=== PATIENT | female | born 1965 | race Caucasian/White ===

== ENCOUNTER → 2016-07-30 | Outpatient (CLI) | payer BC ==
[~2016-07-30] MED LIST: ASPIRIN E.C. 8181 MG PO; CALCIUM + D 5001 TAB PO; CELEXA20 MG PO; DEXILANT30 MG PO; FLONASE0.05 MG/AC NS; IBU600 MG PO; LASIX20 MG PO; LEUCINE PO; LISINOPRIL10 MG PO; LISINOPRIL20 MG PO; LOPRESSOR 225 MG/TAB PO; MELATONIN3 MG PO; METAMUCIL0.52 GM PO; METOPROLOL TART25 MG PO; MULTIPLE VITAMI1 CAP PO; NORCO 325 MG-101 TAB PO; OSTEO-BI-FLEX 21 TAB PO; POTASSIUM CHLO10 ME2 PO; PRAVASTATIN40 MG PO; PRILOSEC 20MG20 MG PO; SUPER EPA 1201200 MG PO; VITAMIN B COMPL1 TA1 PO; ZYRTEC10 M1 PO
== END ==
LOC: MC.RAD 07:00
DX: Z12.31 Encounter for screening mammogram for malignant neoplasm of breast (principal)

== ENCOUNTER 2016-08-29 13:00 | Outpatient (RCR) | payer BC | END 2016-09-27 09:57 | LOC: WSPT 13:00 | DX: M25.511 Pain in right shoulder (principal) ==

== ENCOUNTER 2017-07-15 06:58 | Day surgery (SDC) | payer BC ==
[~2017-07-15] VITALS: Ht 167.6 cm; Wt 82.4 kg
[~2017-07-15 06:58] MED LIST changes: +CELEXA40 MG PO; +NEXIUM 40MG40 MG PO; +PRAVACHOL80 MG PO; +VESICARE 5MG5 MG PO; +VOLTAREN-XR100 MG PO
[2017-07-15] MEDS ORDERED: ZYRTEC10MGSGL PO (07:30)
[2017-07-15] MEDS ORDERED: METAMUCIL MUL0.52 GM PO (07:31)
[2017-07-15] MEDS ORDERED: MASON NATURAL1200 MG PO (07:32)
[2017-07-15] MEDS ORDERED: ASPIRIN E.C. 8181 MG PO (07:33)
[2017-07-15] MEDS ORDERED: MELATONIN5 M1 PO (07:33)
[2017-07-15] MEDS ORDERED: CALCIUM 600/VIT1 CA1 PO (07:35)
[2017-07-15] MEDS ORDERED: OSTEO-BI-FLEX 21 TAB PO (07:37)
[2017-07-15 08:07] VITALS: BP 124/73; PULSE 63; TEMP 98
[2017-07-15 12:40] VITALS: BP 136/72; PULSE 64; TEMP 97.2
[2017-07-15 13:00] VITALS: BP 132/71; PULSE 63
[2017-07-15 13:15] VITALS: BP 126/77; PULSE 59
[2017-07-15] MEDS ORDERED: NORCO 325 MG-7.1 TAB PO (13:20)
[2017-07-15] MEDS ORDERED: OXY IR5 MG PO (13:21)
[2017-07-15 13:30] VITALS: BP 136/76; PULSE 58
[2017-07-15 14:00] VITALS: BP 128/66; PULSE 56
== END 2017-07-15 15:00 | disposition home or self-care (01) ==
LOC: SDCO 06:58
DX: M75.121 Complete rotator cuff tear or rupture of right shoulder, not specified as traumatic (principal); M66.821 Spontaneous rupture of other tendons, right upper arm
CPT/HCPCS: C1713; J0171; J0690; J1100; J2250; J2405; J2704; J3010; J7120

== ENCOUNTER 2017-07-30 15:57 | Emergency (ER) | payer BC ==
[~2017-07-30] VITALS: Ht 170.2 cm; Wt 86.4 kg
[~2017-07-30 15:57] MED LIST changes: +CALCIUM 600/VIT1 CA1 PO; +MASON NATURAL1200 MG PO; +MELATONIN5 M1 PO; +METAMUCIL MUL0.52 GM PO; +NORCO 325 MG-7.1 TAB PO; +OXY IR5 MG PO; +ZYRTEC10MGSGL PO
[2017-07-30 15:58] VITALS: TEMP 98.3
[2017-07-30 16:35] LABS: BASO % 0.6 % (0.0-2.0); EOS # 0.3 (0.0-0.7); EOS % 5.9 % (0-4.0); GRAN # 3.4 (1.4-6.5); GRAN % 62.5 % (42.2-75.2); HEMATOCRIT 38.8 % (37.0-47.0); LYMPH # 1.4 (1.2-3.4); LYMPH % 25.1 % (20.0-51.0); MEAN CELL VOLUME 94 fl (80.0-100.0); MEAN CORPUSCULAR HEMOGLOBIN 32 pg (27.0-31.0); MEAN CORPUSCULAR HGB CONC 34 g/dl (33.0-37.0); MEAN PLATELET VOLUME 10.8 fl (7.4-10.4); MONO # 0.3 (0.1-0.6); MONO % 5.7 % (1.7-9.3); PLATELET COUNT 209 K/mm3 (130-400); RED BLOOD COUNT 4.11 M/mm3 (4.10-5.30); REDCELL DISTRIBUTION WIDTH-CV 12.3 % (11.5-14.5)
[2017-07-30 16:52] LABS: ALANINE AMINOTRANSFERASE 55 U/L (9-52); ALKALINE PHOSPHATASE 94 U/L (50-136); ANION GAP 11 mmol/L (7-16); AST,SGOT 34 U/L (15-37); BILIRUBIN,TOTAL 0.5 mg/dL (0.0-1.0); BLOOD UREA NITROGEN 24 mg/dL (7-17); CALCIUM 9.4 mg/dL (8.4-10.2); CARBON DIOXIDE 25 mmol/L (22-30); CHLORIDE 102 mmol/L (98-107); CREATININE, serum 0.93 mg/dL (0.52-1.25); GLUCOSE 79 mg/dL (74-106); LIPASE 115 U/L (23-300); POTASSIUM 3.8 mmol/L (3.4-5.0); SODIUM 138 mmol/L (137-145); TOTAL PROTEIN 7.1 gm/dL (6.4-8.2)
[2017-07-30 17:02] LABS: TROPONIN-I < 0.012 ng/mL (0.000-0.034)
[2017-07-30 19:45] VITALS: BP 136/88; PULSE 58
== END 2017-07-30 19:35 | disposition home or self-care (01) ==
LOC: COL.ER 15:57
PROVIDERS: Emergency Medicine
DX: R07.89 Other chest pain (principal); R06.02 Shortness of breath; I10 Essential (primary) hypertension; E78.5 Hyperlipidemia, unspecified; Z79.82 Long term (current) use of aspirin; Z98.890 Other specified postprocedural states
CPT/HCPCS: Q9967

== ENCOUNTER 2017-08-08 14:04 | Day surgery (SDC) | payer BC ==
[~2017-08-08] VITALS: Ht 170.2 cm; Wt 86.4 kg
[2017-08-08 14:33] VITALS: BP 122/70; PULSE 56; TEMP 98.6
[2017-08-08] MEDS ORDERED: MULTI VITAMINS1 TAB PO (14:41)
[2017-08-08] MEDS ORDERED: METAMUCIL MUL0.52 GM PO (14:44)
[2017-08-08] MEDS ORDERED: ADVIL200 MG PO (14:47)
[2017-08-08] MEDS ORDERED: OSTEO-BI-FLEX 21 TAB PO (14:47)
[2017-08-08] MEDS ORDERED: TYLENOL 8 HR PO (14:48)
[2017-08-08 15:45] VITALS: BP 113/65; PULSE 56; TEMP 97.5
[2017-08-08 16:00] VITALS: BP 99/73; PULSE 63
[2017-08-08 16:15] VITALS: BP 108/56; PULSE 55
[2017-08-08 16:30] VITALS: BP 107/65; PULSE 53
== END 2017-08-08 16:48 | disposition home or self-care (01) ==
LOC: SDCO 14:04
DX: K22.2 Esophageal obstruction (principal); K44.9 Diaphragmatic hernia without obstruction or gangrene; K20.0 Eosinophilic esophagitis; Z86.010 Personal history of colon polyps; R01.1 Cardiac murmur, unspecified; Z79.82 Long term (current) use of aspirin; Z79.899 Other long term (current) drug therapy; Z83.71 Family history of colonic polyps
CPT/HCPCS: OP; C1726; J2250; J3010; J7030

== ENCOUNTER → 2017-09-09 | Outpatient (CLI) | payer BC ==
[~2017-09-09] MED LIST changes: +ADVIL200 MG PO; +MULTI VITAMINS1 TAB PO; +TYLENOL 8 HR PO
== END ==
LOC: MC.RAD 08-02 11:00
DX: Z12.31 Encounter for screening mammogram for malignant neoplasm of breast (principal)

== ENCOUNTER → 2017-09-11 | Outpatient (CLI) | payer BC | LOC: MC.RAD 12:46 | DX: N64.89 Other specified disorders of breast (principal) ==

== ENCOUNTER → 2017-09-18 | Outpatient (CLI) | payer BC | LOC: MC.RAD 08:10 | DX: N60.91 Unspecified benign mammary dysplasia of right breast (principal); R92.0 Mammographic microcalcification found on diagnostic imaging of breast ==

== ENCOUNTER 2017-10-11 06:42 | Day surgery (SDC) | payer BC ==
[~2017-10-11] VITALS: Ht 167.6 cm; Wt 87.8 kg
[2017-10-11 08:19] VITALS: BP 109/54; PULSE 50; TEMP 97.4
[2017-10-11 11:35] VITALS: BP 100/57; PULSE 51
[2017-10-11 11:50] VITALS: BP 100/62; PULSE 51
[2017-10-11 12:05] VITALS: BP 106/58; PULSE 50
[2017-10-11 12:20] VITALS: BP 110/59; PULSE 50
[2017-10-11] MEDS ORDERED: NORCO 325 MG-51 TAB PO (12:27)
== END 2017-10-11 13:10 | disposition home or self-care (01) ==
LOC: SDCO 06:42
DX: D24.1 Benign neoplasm of right breast (principal); N62 Hypertrophy of breast; Z79.82 Long term (current) use of aspirin; Z79.899 Other long term (current) drug therapy; I34.1 Nonrheumatic mitral (valve) prolapse; I10 Essential (primary) hypertension; G47.33 Obstructive sleep apnea (adult) (pediatric); K21.9 Gastro-esophageal reflux disease without esophagitis; R39.15 Urgency of urination
CPT/HCPCS: J1100; J2250; J2405; J2704; J2795; J3010; J7120

== ENCOUNTER 2018-03-05 07:06 | Inpatient (IN) | payer BC ==
[~2018-03-05] VITALS: Ht 167.6 cm; Wt 89.1 kg
[2018-03-05] VITALS (11 sets, daily range): BP systolic 92–120; BP diastolic 47–71; PULSE 77–93; TEMP 97.4–100.1
[~2018-03-05 07:06] MED LIST changes: +NORCO 325 MG-51 TAB PO
[2018-03-05 07:44] LABS: BASO % 0.3 % (0.0-2.0); EOS % 0.4 % (0-4.0); GRAN # 6.6 (1.4-6.5); HEMOGLOBIN 15.2 g/dl (12.5-16.0); LYMPH # 0.6 (1.2-3.4); LYMPH % 8.1 % (20.0-51.0); MEAN CELL VOLUME 94 fl (80.0-100.0); MEAN CORPUSCULAR HEMOGLOBIN 32 pg (27.0-31.0); MEAN CORPUSCULAR HGB CONC 34 g/dl (33.0-37.0); MEAN PLATELET VOLUME 11.7 fl (7.4-10.4); MONO # 0.3 (0.1-0.6); MONO % 3.8 % (1.7-9.3); PLATELET COUNT 194 K/mm3 (130-400); RED BLOOD COUNT 4.79 M/mm3 (4.10-5.30); REDCELL DISTRIBUTION WIDTH-CV 12.4 % (11.5-14.5)
[2018-03-05 07:57] LABS: ALBUMIN 4.7 gm/dL (3.5-5.0); BILIRUBIN,TOTAL 0.6 mg/dL (0.0-1.0); C-REACTIVE PROTEIN 6.1 mg/dL (0.0-0.9); CREATININE, serum 0.98 mg/dL (0.52-1.25); TOTAL PROTEIN 7.8 gm/dL (6.4-8.2)
[2018-03-05 08:23] LABS: COLLECTION METHOD CLEAN CATCH
[2018-03-05 08:28] LABS: MUCOUS Present /lpf; PH 5 (5-8); SQUAMOUS EPITHELIAL 0-2 /hpf; URINE APPEARANCE Clear; URINE BACTERIA None Seen /hpf; URINE BILIRUBIN Negative (NEGATIVE); URINE BLOOD Negative (NEGATIVE); URINE COLOR Yellow; URINE GLUCOSE Negative (NEGATIVE); URINE KETONE Negative (NEGATIVE); URINE LEUKOCYTE ESTERASE Negative (NEGATIVE); URINE NITRATE Negative (NEGATIVE); URINE PROTEIN(semi-quant) Negative (NEGATIVE); URINE RBC 0-2 /hpf; URINE UROBILINOGEN Negative (NEGATIVE)
--- NOTE | 2018-03-05 11:12 | NUR ---
Patient admitted to room 342 from ER. Report was obtained from Isabella. Patient inital, 5 page & med rec completed. Patient IV to Rac, LR to gravity started. Patient freshed up for OR. [facility] hell[facility] to take her to the OR.
--- NOTE | 2018-03-05 12:44 | NUR ---
Patient to OR with [facility] transporter now, there was a delay in OR
--- NOTE | 2018-03-05 13:29 | NUR ---
First visit from the public accountant. prayed with patient. No other needs right now.
--- NOTE | 2018-03-05 19:37 | NUR ---
Patient post op this afternoon & has done fairly well. VSS on room air. Strang for pain management. Lap site x3 open to air, edges well approximated. She has been up to the bathroom & reports the movement did help relieve gas pain. IVf & antibioitcs as ordered. She is tolerating clear liquids. Scds Ble. Bedside report to Yaya QUICK
[2018-03-06] VITALS: BP 99/53; PULSE 80; TEMP 98
[2018-03-06 04:00] VITALS: BP 104/41; PULSE 70; TEMP 98.3
--- NOTE | 2018-03-06 06:12 | NUR ---
Pt slept during the night, some C/O pain which was relieved with medication, VS have remained stable. Pt was up several times to use the restroon without major issues. she does need assistqnce to stand but ambulates well on her own.
[2018-03-06 09:07] VITALS: BP 99/49; PULSE 70; TEMP 97.4
--- NOTE | 2018-03-06 09:35 | NUR ---
Initial visit; Patient thanked Machine Zipper Trimmer for looking in on her and offering prayer of thanksgiving that she is recovering well and is thankful for God's blessings.
--- NOTE | 2018-03-06 10:00 | NUR ---
Patient alert and oriented, answers questions appropriately. See assessment. RLE with slight external rotation, pulses palpable, no c/o numbness or tingling. C/o continuous pain to RLE. NWB to RLE. No other c/o at this time.
[2018-03-06 13:09] VITALS: BP 125/61; PULSE 75; TEMP 98.6
--- NOTE | 2018-03-06 14:44 | NUR ---
YANCY met with the patient to discuss discharge plan. The patient lives alone in [place] and is a professor at [employer]. She reports independence with ADLs and does not use any DME. The patient's PCP is Dr. Endy Brooks and she receives her medications at the [facility]. She reports no difficulties obtaining her meds. The patient does not have advanced directives, but she was interested in obtaining the form for DPOA-HC. YANCY provided. The patient plans to return home upon discharge. No additional needs at this time.
[2018-03-06 16:25] VITALS: BP 101/65; PULSE 80; TEMP 98.4
[2018-03-06 19:26] VITALS: BP 110/68; PULSE 86; TEMP 98.5
--- NOTE | 2018-03-06 20:00 | NUR ---
Patient in bed resting. Alert and oriented x3. Shift assessment complete. Lap sites x3, open to air, edges well approximated. States mild pain to abdomen but refuses pain medication. Up to restroom, stand by assist. SCDs to bilateral lower extremities. Denies further needs at this time.
[2018-03-07 03:22] VITALS: BP 110/65; PULSE 76; TEMP 97.9
--- NOTE | 2018-03-07 05:03 | NUR ---
Patient has rested well through the night. Minimal needs. Has been up to restroom, stand by assist. Had an episode of diarrhea this AM, bedpad changed and gown changed. Patient denies pain this AM. SCDs to BLE. Denies further needs at this time. Will report off to day shift.
[2018-03-07 07:20] VITALS: BP 105/52; PULSE 77; TEMP 98.4
--- NOTE | 2018-03-07 10:14 | NUR ---
Follow-up visit; Patient thanked Senior Android Developer for stopping in prior to her release and per request praying for cessation of pain and rapid healing.
--- NOTE | 2018-03-07 10:58 | NUR ---
Discharge instructions reveiwed with patient, verbalized understanding. Discharged ambulatory to auto/home at 1055.
== END 2018-03-07 10:55 | disposition home or self-care (01) | DRG 340 ==
LOC: COL.ER 07:06 → SURG 09:38
PROVIDERS: Emergency Medicine; ADMIT Surgery
PROC: 0DTJ4ZZ Resection of Appendix, Percutaneous Endoscopic Approach (ICD-10-PCS; principal; 2018-03-05 12:00)
DX: K35.33 Acute appendicitis with perforation, localized peritonitis, and gangrene, with abscess (principal); I10 Essential (primary) hypertension; Z95.2 Presence of prosthetic heart valve; E78.5 Hyperlipidemia, unspecified; K21.9 Gastro-esophageal reflux disease without esophagitis
CPT/HCPCS: J1885; J2405; J2543; J2704; J3010; J7030; J7120

== ENCOUNTER → 2018-07-11 | Outpatient (CLI) | payer BC | LOC: MC.RAD 07:33 | DX: Z12.31 Encounter for screening mammogram for malignant neoplasm of breast (principal); N64.89 Other specified disorders of breast ==

== ENCOUNTER → 2018-07-16 | Outpatient (CLI) | payer BC | LOC: MC.RAD 07:39 | DX: R92.2 Inconclusive mammogram (principal) | CPT/HCPCS: G0279 ==

== ENCOUNTER → 2019-01-15 | Outpatient (CLI) | payer BC | LOC: MC.RAD 06:58 | DX: R92.2 Inconclusive mammogram (principal) | CPT/HCPCS: G0279 ==

== ENCOUNTER 2019-04-17 18:02 | Emergency (ER) | payer OTHER ==
[~2019-04-17] VITALS: Ht 167.6 cm; Wt 86.4 kg
[2019-04-17 18:06] VITALS: TEMP 98
[2019-04-17 20:00] VITALS: BP 125/79; PULSE 59
== END 2019-04-17 20:00 | disposition home or self-care (01) ==
LOC: COL.ER 18:02
DX: S30.1XXA Contusion of abdominal wall, initial encounter (principal); R40.2412 Glasgow coma scale score 13-15, at arrival to emergency department; Z79.82 Long term (current) use of aspirin; V43.52XA Car driver injured in collision with other type car in traffic accident, initial encounter
CPT/HCPCS: Q9967

== ENCOUNTER → 2019-07-22 | Outpatient (CLI) | payer BC | LOC: MC.RAD 09:51 | DX: R92.8 Other abnormal and inconclusive findings on diagnostic imaging of breast (principal) | CPT/HCPCS: 30634 ==

== ENCOUNTER → 2020-01-25 | Outpatient (CLI) | payer BC | LOC: MC.RAD 07:25 | DX: R92.2 Inconclusive mammogram (principal); Z98.82 Breast implant status ==

== ENCOUNTER → 2020-07-20 | Outpatient (CLI) | payer BC ==
[~2020-07-20] MED LIST changes: +PEPCID40 MG PO
== END ==
LOC: MC.RAD 08:43
DX: Z12.31 Encounter for screening mammogram for malignant neoplasm of breast (principal); Z98.890 Other specified postprocedural states

== ENCOUNTER 2020-07-29 08:53 | Day surgery (SDC) | payer BC ==
[~2020-07-29] VITALS: Ht 167.6 cm; Wt 85.0 kg
[~2020-07-29 08:53] MED LIST changes: -PEPCID40 MG PO
[2020-07-29 09:34] VITALS: BP 122/74; PULSE 50; TEMP 98
[2020-07-29] MEDS ORDERED: PEPCID40 MG PO (10:12)
[2020-07-29 11:10] VITALS: BP 104/62; PULSE 55
--- NOTE | 2020-07-29 11:10 | NUR ---
Patient returns to bay 3 per cart and transfers from cart to recliner with two person assist. Alert and oriented x3. IV fluids infusing. Temp 96.6 and room air sats 97%. Given water to drink and pudding to eat. Denies nausea or abdominal pain.
[2020-07-29 11:25] VITALS: BP 121/63; PULSE 54
--- NOTE | 2020-07-29 11:25 | NUR ---
Resting and talking with family. IV fluids continue to infuse.
--- NOTE | 2020-07-29 11:30 | NUR ---
Dr. Peters here and talks with the patient. All questions answered.
[2020-07-29 11:35] VITALS: BP 127/77; PULSE 49
--- NOTE | 2020-07-29 11:35 | NUR ---
IV discontinued and site is free for redness. Patient dresses self.
--- NOTE | 2020-07-29 11:50 | NUR ---
Dismissal instructions given and signed. Voices understanding of these.
--- NOTE | 2020-07-29 11:53 | NUR ---
Discharged to home driven by family with dismissal instructions in hand. Taken to the front door per wheelchair and assisted into vehicle with instructions in hand.
== END 2020-07-29 10:35 | disposition home or self-care (01) ==
LOC: SDCO 08:53
DX: K21.9 Gastro-esophageal reflux disease without esophagitis (principal); K22.2 Esophageal obstruction; K20.0 Eosinophilic esophagitis; K44.9 Diaphragmatic hernia without obstruction or gangrene; E78.5 Hyperlipidemia, unspecified; J30.9 Allergic rhinitis, unspecified; D64.9 Anemia, unspecified; I48.91 Unspecified atrial fibrillation; I48.92 Unspecified atrial flutter; I31.3 Pericardial effusion (noninflammatory); R19.7 Diarrhea, unspecified; N18.9 Chronic kidney disease, unspecified; I34.0 Nonrheumatic mitral (valve) insufficiency; G47.33 Obstructive sleep apnea (adult) (pediatric); I12.9 Hypertensive chronic kidney disease with stage 1 through stage 4 chronic kidney disease, or unspecified chronic kidney disease; F32.9 Major depressive disorder, single episode, unspecified; F41.9 Anxiety disorder, unspecified; Z79.899 Other long term (current) drug therapy; Z79.82 Long term (current) use of aspirin; Z86.010 Personal history of colon polyps; Z99.89 Dependence on other enabling machines and devices; Z83.71 Family history of colonic polyps
CPT/HCPCS: C1726; J2704; J7030

== ENCOUNTER → 2020-12-26 | Outpatient (CLI) | payer BC ==
[~2020-12-26] MED LIST changes: +PEPCID40 MG PO
== END ==
LOC: COL.RAD 11:38
DX: R10.9 Unspecified abdominal pain (principal)

== ENCOUNTER → 2021-07-21 | Outpatient (CLI) | payer BC | LOC: MC.RAD 07:23 | DX: N64.59 Other signs and symptoms in breast (principal) ==

== ENCOUNTER → 2023-07-16 | Outpatient (CLI) | payer BC | LOC: MC.RAD 07:47 | DX: Z12.31 Encounter for screening mammogram for malignant neoplasm of breast (principal) ==

== ENCOUNTER 2023-09-13 13:17 | Day surgery (SDC) | payer BC ==
[~2023-09-13] VITALS: Ht 167.6 cm; Wt 84.0 kg
[~2023-09-13 13:17] MED LIST changes: +LR 1,000 ML IV SCH; +Ondansetron 4 MG/2 ML VIAL IV PRN
[2023-09-13 13:40] VITALS: BP 138/81; PULSE 66; TEMP 98.7
[2023-09-13] MEDS ORDERED: VITAMIN D 50,1.25 MG PO (14:25)
[2023-09-13] MEDS ORDERED: fentaNYL 50 MCG/ML 2 ML VIAL ONE (14:35)
[2023-09-13] MEDS ORDERED: Lidocaine PF 2% (20 MG/ML) 5 ML VIAL ONE (14:35)
[2023-09-13 15:20] VITALS: BP 104/71; PULSE 61; TEMP 97
--- NOTE | 2023-09-13 15:20 | NUR ---
PATIENT AMBULATED TO CHAIR WITH STEADY GAIT, ASSIST OF 2. ALERT AND AWAKE. DENIES PAIN, NAUSEA AND SHORTNESS OF BREATH. BREATHING REGULAR AND UNLABORED ON ROOM AIR. SKIN WARM AND DRY. IV IN PLACE. NURSE HANDOFF COMPLETED IN ROOM. SEE CHART FOR VITAL SIGNS. PATIENT HAD WATER AND APPLESAUCE, BOTH TOLERATED WELL WITH NO DYSPHAGIA.
[2023-09-13 15:30] VITALS: BP 98/58; PULSE 63
[2023-09-13 15:45] VITALS: BP 111/61; PULSE 58
[2023-09-13 15:50] VITALS: BP 122/64; PULSE 61
--- NOTE | 2023-09-13 15:55 | NUR ---
1524: MET WITH PATIENT IN ROOM TO DISCUSS PROCEDURE. 1549: DISCHARGE TEACHING COMPLETED WITH PRINTED EDUCATION AND INSTRUCTIONS SENT HOME WITH PATIENT. PATIENT VERBALIZED UNDERSTANDING OF TEACHING. 1550: IV REMOVED. GAUZE AND COBAN PLACED OVER SITE. 1555:PATIENT DISCHARGED HOME WITH [facility].
== END 2023-09-13 15:55 | disposition home or self-care (01) ==
LOC: SDCO 13:17
DX: K20.0 Eosinophilic esophagitis (principal); K22.2 Esophageal obstruction; K21.9 Gastro-esophageal reflux disease without esophagitis; K44.9 Diaphragmatic hernia without obstruction or gangrene; K29.30 Chronic superficial gastritis without bleeding; R19.7 Diarrhea, unspecified; Z86.010 Personal history of colon polyps
CPT/HCPCS: C1726; J2704; J3010; J7120